=== PATIENT | male | born 1945 | race Two or more races ===

== ENCOUNTER → 2019-10-28 | Emergency (ER) | payer OTHER ==
[~2019-10-28] VITALS: Ht 167.6 cm; Wt 68.0 kg
[~2019-10-28] MED LIST: AMLODIPINE BESYL5 MG PO; ATENOLOL25 MG PO; DOXAZOSIN MESYLA2 MG PO; NORVASC10 MG PO; PARA PRESION
== END | disposition home or self-care (01) ==
LOC: ER 14:38
DX: S83.8X1A Sprain of other specified parts of right knee, initial encounter (principal); X50.0XXA Overexertion from strenuous movement or load, initial encounter; Y93.89 Activity, other specified; Y92.89 Other specified places as the place of occurrence of the external cause; Y99.8 Other external cause status

== ENCOUNTER 2020-06-19 21:25 | Emergency (ER) | payer OTHER ==
[~2020-06-19] VITALS: Ht 167.6 cm; Wt 65.8 kg
[2020-06-20] MEDS ORDERED: TAMS0.4C PO (00:22)
== END 2020-06-20 00:46 | disposition home or self-care (01) ==
LOC: ER 21:25
DX: R33.8 Other retention of urine (principal)

== ENCOUNTER 2020-06-24 01:08 | Emergency (ER) | payer OTHER ==
[~2020-06-24] VITALS: Ht 165.1 cm; Wt 65.8 kg
[~2020-06-24 01:08] MED LIST changes: +TAMS0.4C PO
[2020-06-24] MEDS ORDERED: CIPRO500 MG PO (04:38)
== END 2020-06-24 05:21 | disposition home or self-care (01) ==
LOC: ER 01:08
DX: N39.0 Urinary tract infection, site not specified (principal); R31.0 Gross hematuria

== ENCOUNTER 2020-07-05 10:49 | Emergency (ER) | payer OTHER ==
[~2020-07-05] VITALS: Ht 165.1 cm; Wt 68.0 kg
[~2020-07-05 10:49] MED LIST changes: +CIPRO500 MG PO
== END 2020-07-05 12:44 | disposition home or self-care (01) ==
LOC: ER 10:49
DX: Z46.6 Encounter for fitting and adjustment of urinary device (principal)

== ENCOUNTER 2020-10-14 14:55 | Emergency (ER) | payer OTHER ==
[~2020-10-14] VITALS: Ht 165.1 cm; Wt 65.8 kg
[2020-10-14] MEDS ORDERED: COZAAR100 MG PO (15:21)
== END 2020-10-14 18:01 | disposition home or self-care (01) ==
LOC: ER 14:55
DX: S80.01XA Contusion of right knee, initial encounter (principal); S20.211A Contusion of right front wall of thorax, initial encounter; W18.09XA Striking against other object with subsequent fall, initial encounter; Y93.89 Activity, other specified; Y92.413 State road as the place of occurrence of the external cause; Y99.8 Other external cause status

== ENCOUNTER 2020-12-12 22:48 | Emergency (ER) | payer OTHER ==
[~2020-12-12] VITALS: Ht 167.6 cm; Wt 65.8 kg
[~2020-12-12 22:48] MED LIST changes: +COZAAR100 MG PO
[2020-12-12] MEDS ORDERED: CARDURA1 MG (23:43)
[2020-12-12] MEDS ORDERED: LOSARTAN POTASS25 MG (23:44)
[2020-12-13] MEDS ORDERED: TAMS0.4C PO (02:11)
== END 2020-12-13 02:32 | disposition home or self-care (01) ==
LOC: ER 22:48
DX: R33.8 Other retention of urine (principal)

== ENCOUNTER 2020-12-16 10:47 | Emergency (ER) | payer OTHER ==
[~2020-12-16] VITALS: Ht 165.1 cm; Wt 61.2 kg
[~2020-12-16 10:47] MED LIST changes: +CARDURA1 MG; +LOSARTAN POTASS25 MG
== END 2020-12-16 15:38 | disposition home or self-care (01) ==
LOC: ER 10:47
DX: R31.0 Gross hematuria (principal); Z11.52 Encounter for screening for COVID-19

== ENCOUNTER 2022-08-27 06:14 | Emergency (ER) | payer OTHER ==
[~2022-08-27] VITALS: Ht 167.6 cm; Wt 63.5 kg
== END 2022-08-27 09:59 | disposition home or self-care (01) ==
LOC: ER 06:14
DX: K59.00 Constipation, unspecified (principal); R33.9 Retention of urine, unspecified; Z88.6 Allergy status to analgesic agent; Z88.0 Allergy status to penicillin

== ENCOUNTER → 2022-11-04 | Emergency (ER) | payer OTHER ==
[~2022-11-04] VITALS: Ht 167.6 cm; Wt 54.4 kg
== END | disposition home or self-care (01) ==
LOC: ER 21:28
DX: N13.9 Obstructive and reflux uropathy, unspecified (principal); Z88.0 Allergy status to penicillin; Z88.6 Allergy status to analgesic agent

== ENCOUNTER 2022-11-07 09:37 | Emergency (ER) | payer OTHER ==
[~2022-11-07] VITALS: Ht 167.6 cm; Wt 59.0 kg
== END 2022-11-07 16:09 | disposition home or self-care (01) ==
LOC: ER 09:38
DX: T83.098A Other mechanical complication of other urinary catheter, initial encounter (principal); Z88.6 Allergy status to analgesic agent; Z88.0 Allergy status to penicillin